=== PATIENT | male | born 1995 | race Caucasian/White ===

== ENCOUNTER 2019-10-25 04:22 | Emergency (ER) | payer OTHER ==
[2019-10-25] MEDS ORDERED: Lactated Ringers 1,000 ML IV ONE (04:40)
[2019-10-25] MEDS ORDERED: Ondansetron 4 MG/2 ML SDV IVPUSH ONE (04:40)
--- NOTE | 2019-10-25 04:40 | EDM.PDOC ---
ED HPI GENERAL MEDICAL PROBLEM - General Chief Complaint: Gastrointestinal Problem Stated Complaint: DIARRHEA, NAUSEA Time Seen by Provider: 10/25/19 04:33 - History of Present Illness INITIAL COMMENTS - FREE TEXT/NARRATIVE: 24-year-old male presents emergency room with nausea vomiting diarrhea. This started around 10:00 this evening he vomited several times maybe as many as 8-10, and has had a couple loose stools. He's had some abdominal cramping with this. Diarrhea has been nonbloody. He has not had any fevers or chills no respiratory symptoms such as cough or congestion. He has had some abdominal cramping and discomfort associated with this. His past medical history is otherwise unremarkable. - Related Data Allergies Allergy/AdvReac Type Severity Reaction Status Date / Time morphine Allergy Other Verified 07/28/19 07:13 Sulfa (Sulfonamide Allergy Other Verified 07/28/19 07:13 Antibiotics) Home Meds: Home Meds Ondansetron [Zofran ODT] 8 mg PO ASDIRECTED PRN #12 tab.dis 10/25/19 [Rx] ED ROS GENERAL - Review of Systems Review Of Systems: See Below Constitutional: Denies: Fever, Chills HEENT: Reports: No Symptoms Respiratory: Reports: No Symptoms Cardiovascular: Reports: No Symptoms GI/Abdominal: Reports: Diarrhea, Nausea, Vomiting. Denies: Anorexia, Black Stool, Bloody Stool : Reports: No Symptoms Musculoskeletal: Reports: Back Pain (Dual some back pain after throwing up) Neurological: Reports: No Symptoms ED EXAM, GI/ABD - Physical Exam Exam: See Below Exam Limited By: No Limitations General Appearance: Alert, No Apparent Distress Head: Atraumatic, Normocephalic Neck: Normal Inspection, Supple, Non-Tender, Full Range of Motion Respiratory/Chest: No Respiratory Distress, Lungs Clear, Normal Breath Sounds Cardiovascular: Regular Rate, Rhythm, No Edema, No Murmur GI/Abdominal Exam: Normal Bowel Sounds, Soft, Other (Minimal discomfort with palpation no rigidity rebound guarding. Tenderness limited to musculature closer to the ribs) Course - Vital Signs Last Recorded V/S: Last Vital Signs Temp 37.1 C 10/25/19 04:29 Pulse 100 10/25/19 04:29 Resp 18 10/25/19 04:29 BP 152/78 H 10/25/19 04:29 Pulse Ox 100 10/25/19 04:29 - Orders/Labs/Meds Meds: Medications Discontinued Medications Generic Name Dose Route Start Last Admin Trade Name Yvette PRN Reason Stop Dose Admin Lactated Ringer's 1,000 mls @ 999 mls/hr 10/25/19 04:40 10/25/19 04:46 Ringers, Lactated IV 10/25/19 05:40 999 mls/hr .BOLUS ONE Administration Ketorolac Tromethamine 15 mg 10/25/19 05:19 10/25/19 05:21 Toradol IVPUSH 10/25/19 05:20 15 mg ONETIME ONE Administration Ondansetron HCl 4 mg 10/25/19 04:40 10/25/19 04:46 Zofran IVPUSH 10/25/19 04:41 4 mg ONETIME ONE Administration Ondansetron HCl 4 mg 10/25/19 05:44 10/25/19 05:48 Zofran Odt PO 10/25/19 05:45 4 mg ONETIME ONE Administration - Re-Assessments/Exams Free Text/Narrative Re-Assessment/Exam: 10/25/19 06:14 Patient was given a liter of LR as well as some IV Zofran after about 15-20 minutes he was able to drink Powerade without difficulty. Anticipating discharge he was given 4 mg of Zofran ODT and did well with this also at this time the patient thinks she's in good shape to go home. Departure - Departure Time of Disposition: 06:15 Disposition: DC/Tfer to Court of Law En 21 Clinical Impression: Gastroenteritis - Discharge Information Prescriptions: Ondansetron [Zofran ODT] 8 mg PO ASDIRECTED PRN #12 tab.dis PRN Reason: Nausea/Vomiting Instructions: Viral Gastroenteritis, Adult Referrals: Abdirashid Springer MD [Primary Care Provider] - Forms: ED Department Discharge Additional Instructions: Return to the emergency room with any questions problems or worsening symptoms. Clear liquid diet for the next 24 hours then slowly advance as tolerated. Use the Zofran as directed. Sepsis Event Note - Evaluation Sepsis Screening Result: No Definite Risk - Focused Exam Vital Signs: Vital Signs Temp Pulse Resp BP Pulse Ox 10/25/19 04:29 37.1 C 100 18 152/78 H 100 Date Exam was Performed: 10/25/19 Time Exam was Performed: 06:01
[2019-10-25] MEDS ORDERED: Ketorolac 15 MG/ML SDV IVPUSH ONE (05:19)
[2019-10-25] MEDS ORDERED: Ondansetron 4 MG Tab.DIS PO ONE (05:44)
== END 2019-10-25 06:31 ==
LOC: JD.ED 04:22
DX: K52.9 Noninfective gastroenteritis and colitis, unspecified (principal); Z88.5 Allergy status to narcotic agent; Z88.2 Allergy status to sulfonamides
CPT/HCPCS: 96361; 96374; 96375; 99283; A9270; J1885; J2405; J7120